=== PATIENT | male | born 1985 | race Caucasian/White ===

== ENCOUNTER 2017-10-13 10:44 | Emergency (ER) | payer OTHER ==
[2017-10-13 11:40] LABS: ABS Basophils 0 10^3/ul (0-0.2); ABS Eosinophils 0 10^3/ul (0-0.6); ABS Lymphocytes 1.5 10^3/ul (1.0-4.8); ABS Monocytes 0.3 10^3/ul (0-0.8); ABS Neutrophils 5.9 10^3/ul (1.5-7.7); ABS Nucleated RBC 0 10^3/ul; Eosinophil % 0.3 % (0-6); Hematocrit 45 % (42-52); Hemoglobin 15.8 g/dl (14.0-18.0); Lymphocyte % 19.7 % (25-47); Mean Corpuscular HGB Conc 35 g/dl (31-36); Mean Corpuscular Hemoglobin 30 pg (27-31); Mean Corpuscular Volume 84 fL (80-94); Mean Platelet Volume 7.1 um3 (7.4-10.4); Nucleated Red Blood Cells % 0; Platelet Count 278 10^3/ul (150-450); Red Blood Count 5.37 10^6/ul (4.0-5.4); Red Cell Distribution Width 13 % (10.5-15); White Blood Count 7.9 10^3/ul (3.5-10.8)
[2017-10-13 11:59] LABS: EGFR Non-African American 81.1 (>60)
[2017-10-13 12:25] LABS: Urine Appearance Clear; Urine Blood 2+ (Negative); Urine Color Colorless; Urine Ketones Negative (Negative); Urine Protein Negative (Negative); Urine Specific Gravity 1.002 (1.010-1.030); Urine Urobilinogen Negative (Negative)
[2017-10-13 14:19] VITALS: BP 134/70
--- NOTE | 2017-10-22 14:08 | ED ---
Kevin Conte Gabriel, scribed for Maximo Ramos MD on 10/13/17 at 1234 . Psychiatric Complaint - HPI Summary HPI Summary: This patient is a 32 year old M presenting to [facility] accompanied by his mother with a chief complaint of increased OCD. Pt states he hit his head a couple months ago and has been having regular checks ups since. Although his PCP would like him to have blood work and a brain MRI. On top of this the patient states his OCD, that he was diagnosed with when he was 15 has recently gotten much worse. Pt has been off medication since he was 19 but recently started a new one 5 days ago. Patient reports intrusive thoughts, poor sleep, repetitious behavior, and rapid speech. Patient denies SI, recent illness, hearing voices, and HI. The patient saw a specialist when he was younger which improved his symptoms significantly and this is when he was able to come off his medication. 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 - History Of Current Complaint Chief Complaint: EDMentalHealth Time Seen by Provider: 10/13/17 11:21 Hx Obtained From: Patient Onset/Duration: Still Present, Worse Since Timing: Constant Severity Initially: Mild Severity Currently: Moderate Aggravating Factor(s): Medication Non-compliance Related History: Positive For: Prior Psychiatric Issues Has Suicidal: Denies: Thoughts, With A Plan Has Homicidal: Denies: Thoughts, With A Plan - Allergies/Home Medications Allergies/Adverse Reactions: Allergies Allergy/AdvReac Type Severity Reaction Status Date / Time sulfamethoxazole Allergy Anaphylatic Verified 10/13/17 12:32 [From Bactrim] Shock trimethoprim [From Bactrim] Allergy Anaphylatic Verified 10/13/17 12:32 Shock Home Medications: Home Medications FLUoxetine CAP* [Prozac CAP*] 20 mg PO DAILY 10/13/17 [History Confirmed ] PMH/Surg Hx/FS Hx/Imm Hx Endocrine/Hematology History: Denies: Hx Systemic Lupus Erythematosus, Hx Sickle Cell Disease Respiratory History: Denies: Hx Bronchopulmonary Dysplasia Psychiatric History: Reports: Other Psychiatric Issues/Disorders - OCD Denies: Hx Inpatient Treatment Infectious Disease History: No Infectious Disease History: Denies: Traveled Outside the [place] in Last 30 Days - Family History Known Family History: Positive: Hypertension - Social History Occupation: Employed Full-time Lives: Alone Alcohol Use: Rare Hx Substance Use: No Substance Use Type: Reports: Marijuana Hx Tobacco Use: No Smoking Status (MU): Never Smoked Tobacco Review of Systems Negative: Fever, Chills Negative: Erythema Negative: Sore Throat Negative: Chest Pain Negative: Shortness Of Breath, Cough Negative: Abdominal Pain, Vomiting, Nausea Negative: dysuria, hematuria Negative: Myalgia, Edema Negative: Rash Neurological: Negative - dizziness Psychological: Other - intrusive thoughts, poor sleep, repetitious behavior, and rapid speech. Positive: Other - NEGATIVE HI, SI, hearing voices, All Other Systems Reviewed And Are Negative: Yes Physical Exam - Summary Physical Exam Summary: Constitutional: Well-developed, Well-nourished, Alert. (-) Distressed Skin: Warm, Dry HENT: Normocephalic; Atraumatic Eyes: Conjunctiva normal Neck: Musculoskeletal ROM normal neck. (-) JVD, (-) Stridor, (-) Tracheal deviation Cardio: Rhythm regular, rate normal, Heart sounds normal; Intact distal pulses; The pedal pulses are 2+ and symmetric. Radial pulses are 2+ and symmetric. (-) Murmur Pulmonary/Chest wall: Effort normal. (-) Respiratory distress, (-) Wheezes, (-) Rales Abd: Soft, (-) Tenderness, (-) Distension, (-) Guarding, (-) Rebound Musculoskeletal: (-) Edema Lymph: (-) Cervical adenopathy Neuro: Alert, Oriented x3, Psych: Mood and affect Normal, pressured speech Triage Information Reviewed: Yes Vital Signs On Initial Exam: Initial Vitals Temp Pulse Resp BP Pulse Ox 98.6 F 80 16 130/86 100 10/13/17 10:50 10/13/17 10:50 10/13/17 10:50 10/13/17 10:50 10/13/17 10:50 Vital Signs Reviewed: Yes Diagnostics - Vital Signs Vital Signs Temp Pulse Resp BP Pulse Ox 10/13/17 10:50 98.6 F 80 16 130/86 100 - Laboratory Lab Results: Lab Results 10/13/17 10/13/17 10/13/17 Range/Units 11:30 11:30 11:45 WBC 7.9 (3.5-10.8) 10^3/ul RBC 5.37 (4.0-5.4) 10^6/ul Hgb 15.8 (14.0-18.0) g/dl Hct 45 (42-52) % MCV 84 (80-94) fL MCH 30 (27-31) pg MCHC 35 (31-36) g/dl RDW 13 (10.5-15) % Plt Count 278 (150-450) 10^3/ul MPV 7.1 L (7.4-10.4) um3 Neut % (Auto) 75.4 (38-83) % Lymph % (Auto) 19.7 L (25-47) % [place] % (Auto) 4.3 (0-7) % Eos % (Auto) 0.3 (0-6) % Baso % (Auto) 0.3 (0-2) % Absolute Neuts (auto) 5.9 (1.5-7.7) 10^3/ul Absolute Lymphs (auto) 1.5 (1.0-4.8) 10^3/ul Absolute Monos (auto) 0.3 (0-0.8) 10^3/ul Absolute Eos (auto) 0 (0-0.6) 10^3/ul Absolute Basos (auto) 0 (0-0.2) 10^3/ul Absolute Nucleated RBC 0 10^3/ul Nucleated RBC % 0 Sodium 141 (139-145) mmol/L Potassium 3.6 (3.5-5.0) mmol/L Chloride 105 (101-111) mmol/L Carbon Dioxide 27 (22-32) mmol/L Anion Gap 9 (2-11) mmol/L BUN 14 (6-24) mg/dL Creatinine 1.07 (0.67-1.17) mg/dL Est GFR ( Amer) 104.4 (>60) Est GFR (Non-Af Amer) 81.1 (>60) BUN/Creatinine Ratio 13.1 (8-20) Glucose 141 H (70-100) mg/dL Calcium 10.2 (8.6-10.3) mg/dL Total Bilirubin 0.40 (0.2-1.0) mg/dL AST 24 (13-39) U/L ALT 50 (7-52) U/L Alkaline Phosphatase 63 (34-104) U/L Total Protein 8.1 (6.4-8.9) g/dL Albumin 5.1 (3.2-5.2) g/dL Globulin 3.0 (2-4) g/dL Albumin/Globulin Ratio 1.7 (1-3) TSH Pending Urine Color Colorless Urine Appearance Clear Urine pH 7.0 (5-9) Ur Specific [place] 1.002 L (1.010-1.030) Urine Protein Negative (Negative) Urine Ketones Negative (Negative) Urine Blood 2+ A (Negative) Urine Nitrate Negative (Negative) Urine Bilirubin Negative (Negative) Urine Urobilinogen Negative (Negative) Ur Leukocyte Esterase Negative (Negative) Urine WBC (Auto) Absent (Absent) Urine RBC (Auto) Absent (Absent) Urine Bacteria Absent (Absent) Urine Glucose Negative (Negative) Salicylates < 2.50 (<30) mg/dL Acetaminophen < 15 mcg/mL Serum Alcohol < 10 (<10) mg/dL Result Diagrams: 10/13/17 11:30 10/13/17 11:30 Lab Statement: Any lab studies that have been ordered have been reviewed, and results considered in the medical decision making process. Re-Evaluation - Re-Evaluation First Eval Re-Evaluation Time: 13:41 Change: Unchanged Comment: I discussed test results with the pt. I informed him he should follow up with his PCP about the hematuria. Course/Dx - Course Assessment/Plan: This patient is a 32 year old M presenting to [facility] accompanied by his mother with a chief complaint of increased OCD. Pt states he hit his head a couple months ago and has been having regular checks ups since. Although his PCP would like him to have blood work and a brain MRI. On top of this the patient states his OCD, that he was diagnosed with when he was 15 has recently gotten much worse. Pt has been off medication since he was 19 but recently started a new one 5 days ago. Patient reports intrusive thoughts, poor sleep, repetitious behavior, and rapid speech. Patient denies SI, recent illness, hearing voices, and HI. The patient saw a specialist when he was younger which improved his symptoms significantly and this is when he was able to come off his medication. 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 The patient was seen and evaluated by Dr. Cancino and he has deemed the patient stable to be discharged home and follow up with his PCP. He has no current HI or SI. Dx OCD. Patient will be discharged and follow up with PCP. The patient is agreeable with this plan. - Differential Dx/Clinical Impression Provider Diagnosis: OCD (obsessive compulsive disorder), Painless hematuria Discharge - Sign-Out/Discharge Documenting (check all that apply): Discharge - Discharge Plan Condition: Stable Disposition: HOME Referrals: Shayan Norton MD [Primary Care Provider] - The documentation as recorded by the Kevin liu Gabriel accurately reflects the service I personally performed and the decisions made by , Maximo Ramos MD.
== END 2017-10-13 14:18 | disposition home or self-care (01) ==
LOC: ED 10:44
DX: F42.9 Obsessive-compulsive disorder, unspecified (principal); R31.9 Hematuria, unspecified
CPT/HCPCS: 36415; 80053; 80307; 80320; 80329; 81003; 81015; 84443; 85025; 99284; G0480